=== PATIENT | female | born 1970 | race Caucasian/White ===

== ENCOUNTER 2019-08-03 12:02 | Observation (INO) ==
[2019-08-03] MEDS ORDERED: NITROGLYCERIN 2% OINTMENT 30GM TUBE EXT STA (12:48)
[2019-08-03] MEDS ORDERED: SODIUM CHLORIDE 0.9% 500 ML IV SCH (13:00)
--- NOTE | 2019-08-03 13:03 | Emergency Department Note ---
History of Present Illness General Chief complaint: Chest Pain Stated complaint: CHEST PAIN,DIZZINESS,PAIN IN SHOULDER BLADES,JAW Time Seen by Provider: 08/03/19 12:34 Source: patient History of Present Illness Provider complaint: Chest pain Onset (ago): week(s) Location: chest and left Radiation: back Pain Consistency: + intermittent Quality: + other (Pressure) Relieved By: + none Associated symptoms: + shortness of breath; no cough, no fever/chills and no nausea/vomiting This is a 49-year-old female who presents with chest pain. The pain started a week ago after eating dinner. She describes it as a pressure on the left side of her chest radiating straight to her back. No alleviating factors. It lasted about 10 minutes at the time and was associated with some shortness of breath. Since then she has been having persistent discomfort. She saw her doctor about a week ago who did an EKG and tested her for COVID. The COVID testing was negative. She does not know about the EKG. She is scheduled to have a stress test and further work-up tomorrow but became concerned and came to the emergency department for persistent symptoms. She stated that the chest pressure kept her up all night and she has not been able to sleep for the past 3 days. She has been sweating as well and short of breath. She denies any leg swelling or pain. She states that she has not been on control for a year. She does have a history of high cholesterol and a strong family history of cardiac disease. Her father had his first heart attack in his 40s. The patient does not smoke. She denies any cough, fever, abdominal pain, vomiting or diarrhea. She denies any known exposure to COVID-19. Home Medications Home Medications Medication Instructions Recorded Confirmed Type aspirin 81 mg PO PM 08/03/19 08/03/19 History calcium carbonate [Calcium 600] 0 mg PO PM 08/03/19 08/03/19 History cholecalciferol (vitamin D3) 125 mcg PO QAM 08/03/19 08/03/19 History [Vitamin D3] coenzyme Q10 [Co Q-10] 100 mg PO QAM 08/03/19 08/03/19 History ferrous sulfate [iron] 325 mg PO PM 08/03/19 08/03/19 History melatonin 3 mg PO HS PRN 08/03/19 08/03/19 History multivitamin 1 tab PO QAM 08/03/19 08/03/19 History omega 2-dfg-asc-fish oil [Fish Oil] 1 cap PO QAM 08/03/19 08/03/19 History Allergies Allergy/AdvReac Type Severity Reaction Status Date / Time No Known Allergies Allergy Unverified 08/03/19 12:51 Past Med/Surg History Medical History High cholesterol Family History Father Stroke Coronary heart disease Social History Feels Safe at Home: Yes Smoking Status: Never smoker Review of Systems See HPI for pertinent positives & negatives. and A total of 10 systems reviewed and were otherwise negative Physical Exam Vital Signs Vital Signs - 24 hr 08/03/19 12:07 08/03/19 12:20 08/03/19 12:29 Temperature 36.8 C Temperature Source Oral Pulse Rate 87 72 67 Pulse Rate from SpO2 Sensor 75 69 Respiratory Rate 20 15 20 Respiratory Effort / Characteristics Non-Labored Spontaneous Respiratory Depth Normal Respiratory Pattern Regular Blood Pressure 120/82 123/77 Blood Pressure Mean 94 83 Pulse Oximetry 99 99 100 Oxygen Delivery Method Room Air Sepsis Recent Fever Within 48 Hours No Sepsis Action Taken by Nursing No Action Required 08/03/19 12:30 08/03/19 13:00 08/03/19 13:10 Temperature Temperature Source Pulse Rate 74 67 71 Pulse Rate from SpO2 Sensor 75 70 72 Respiratory Rate 24 15 19 Respiratory Effort / Characteristics Respiratory Depth Respiratory Pattern Blood Pressure 115/79 129/89 Blood Pressure Mean 85 96 Pulse Oximetry 99 100 100 Oxygen Delivery Method Room Air Room Air Sepsis Recent Fever Within 48 Hours Sepsis Action Taken by Nursing 08/03/19 13:20 08/03/19 13:30 08/03/19 13:40 Temperature Temperature Source Pulse Rate 73 81 68 Pulse Rate from SpO2 Sensor 72 70 Respiratory Rate 16 18 15 Respiratory Effort / Characteristics Respiratory Depth Respiratory Pattern Blood Pressure 109/76 Blood Pressure Mean 86 Pulse Oximetry 100 100 99 Oxygen Delivery Method Room Air Other Sepsis Recent Fever Within 48 Hours Sepsis Action Taken by Nursing 08/03/19 13:50 08/03/19 14:00 08/03/19 14:10 Temperature Temperature Source Pulse Rate 77 85 71 Pulse Rate from SpO2 Sensor 75 84 75 Respiratory Rate 13 17 14 Respiratory Effort / Characteristics Respiratory Depth Respiratory Pattern Blood Pressure 108/79 Blood Pressure Mean 91 Pulse Oximetry 100 99 99 Oxygen Delivery Method Sepsis Recent Fever Within 48 Hours Sepsis Action Taken by Nursing 08/03/19 14:20 Temperature Temperature Source Pulse Rate 71 Pulse Rate from SpO2 Sensor 70 Respiratory Rate 16 Respiratory Effort / Characteristics Respiratory Depth Respiratory Pattern Blood Pressure Blood Pressure Mean Pulse Oximetry 100 Oxygen Delivery Method Sepsis Recent Fever Within 48 Hours Sepsis Action Taken by Nursing Constitutional: Vital signs reviewed. Eyes: Pupils are equal round reactive to light. Conjunctiva are noninjected. ENT: Pharynx is clear without erythema or exudate. Mucous membranes are moist. Neck supple without meningeal signs. Respiratory: Clear to auscultation bilaterally. Breath sounds are equal bilaterally. Cardiovascular: Regular rate and rhythm. No rubs or gallops. GI: Soft, nondistended and nontender. Bowel sounds are present. Musculoskeletal: No peripheral edema. No lower extremity tenderness. Integumentary: No cyanosis. or jaundice. Neurological: The patient is awake and alert. No focal deficits. Psychiatric: Slightly anxious appearing. Course Administered Medications Discontinued Medications Aspirin (Aspirin) 324 mg PO NOW STA Stop: 08/03/19 14:05 Last Admin: 08/03/19 14:14 Dose: 324 mg Documented by: [id number] Fentanyl Citrate (Fentanyl Citrate) 25 mcg IV NOW STA Stop: 08/03/19 13:53 Last Admin: 08/03/19 14:16 Dose: 25 mcg Documented by: [id number] Sodium Chloride (Nss) 500 mls @ 999 mls/hr IV .Q31M ANNIKA Stop: 08/03/19 13:30 Last Infusion: 08/03/19 13:35 Dose: 0 mls/hr Documented by: [id number] Admin: 08/03/19 12:58 Dose: 999 mls/hr Documented by: [id number] Nitroglycerin (Nitro-Bid 2%) 0.5 inch EXT NOW STA Stop: 08/03/19 12:49 Last Admin: 08/03/19 12:58 Dose: 0.5 inch Documented by: [id number] Ondansetron HCl (Zofran) 4 mg IV NOW STA Stop: 08/03/19 13:53 Last Admin: 08/03/19 14:14 Dose: 4 mg Documented by: [id number] Medical Decision Making Differential Diagnosis Unstable angina, OK, PE, pneumonia, GERD Medical Records Attestation: I reviewed the patient's medical records. I did perform a limited focused review of portions of the patient's old chart on the electronic medical record. The patient has had no recent pertinent visits to this hospital. Home Medications Current Medication List: was personally reviewed by me Laboratory Data Attestation: I reviewed the patient's lab results. Result diagrams: 08/03/19 12:28 08/03/19 12:28 Lab Results 08/03/19 08/03/19 08/03/19 Range/Units 12:28 12:28 12:28 WBC 8.70 (4.8-10.8) K/uL RBC 4.54 (4.2-5.4) M/uL Hgb 14.4 (12.0-16.0) g/dL Hct 42.7 (37-47) % MCV 94.1 (80-100) fL MCH 31.7 (25-34) pg MCHC 33.7 (32-36) g/dL RDW Std Deviation 41.9 (36.4-46.3) fL RDW Coeff of Samantha 12.3 (11.5-14.5) % Plt Count 226 (130-400) K/uL MPV 12.9 H (7.4-10.4) fL Immature Gran % (Auto) 0.1 % Neut % (Auto) 65.6 % Lymph % (Auto) 22.9 % [place] % (Auto) 10.3 % Eos % (Auto) 0.8 % Baso % (Auto) 0.3 % Immature Gran # (Auto) 0.01 (0.00-0.02) K/uL Neut # (Auto) 5.70 (1.4-6.5) K/uL Lymph # (Auto) 1.99 (1.2-3.4) K/uL [place] # (Auto) 0.90 H (0.11-0.59) K/uL Eos # (Auto) 0.07 (0-0.5) K/uL Baso # (Auto) 0.03 (0-0.2) K/uL PT 10.9 (9.0-12.0) Seconds INR 1.0 (0.9-1.1) APTT 30.2 (21.0-31.0) Seconds PTT Ratio 1.1 D-Dimer < 190 (0-500) ug/L FEU Sodium 138 (136-145) mmol/L Potassium 4.0 (3.5-5.1) mmol/L Chloride 107 (98-107) mmol/L Carbon Dioxide 22 (21-32) mmol/L Anion Gap 8.0 (3-11) BUN 19 H (7-18) mg/dl Creatinine 0.90 (0.6-1.2) mg/dl Est Cr Clr Drug Dosing 69.0 ml/min Est GFR ( Amer) 88.3 Est GFR (Non-Af Amer) 76.1 BUN/Creatinine Ratio 21.0 H (10-20) Glucose 87 (70-99) mg/dl Calcium 9.5 (8.5-10.1) mg/dl Total Bilirubin 0.7 (0.2-1) mg/dl AST 17 (15-37) U/L ALT 20 (12-78) U/L Alkaline Phosphatase 75 (45-117) U/L Troponin I < 0.015 (0-0.045) ng/ml Total Protein 8.1 (6.4-8.2) gm/dl Albumin 4.0 (3.4-5.0) gm/dl Globulin 4.1 H (2.5-4.0) gm/dl Albumin/Globulin Ratio 1.0 (0.9-2) Imaging Data Radiologist's Impression: XR chest 1V portable HISTORY: 49 years-old Female Chest Pain acute atypical chest pain COMPARISON: None TECHNIQUE: Portable AP view of the chest FINDINGS: Cardiac mediastinal and hilar silhouettes are within normal limits. No pneumothorax, pleural effusion, focal airspace consolidation or overt pulmonary edema. Bones of the chest appear normal. IMPRESSION: No acute process. ACT 112: Negative or not required by law. The above report was generated using voice recognition software. It may contain grammatical, syntax or spelling errors. Electronically signed by: Luigi Lieberman M.D. 08/03/2019 1:09 PM ECG Data Attestation: I personally reviewed and interpreted this ECG as follows: Indication: + chest pain Rate (beats per minute): 78 Rhythm: + normal sinus ECG Intervals/blocks: no Left bundle branch block ECG ST segments: + ST depression (Anterior and inferiorly) and + T-wave inversions (Anteriorly and inferiorly) ECG Findings: no PVCs Comparison ECG Date: no prior available Additional Comments: Repeat twelve-lead EKG per my interpretation demonstrates normal sinus rhythm with a rate of 69 bpm. There are persistent ST depressions and T wave inversions in the inferior and anterior leads. No ST elevations no PVCs. No significant change from EKG done earlier today. Blood Pressure Blood Pressure Findings: Normal blood pressure MDM Narrative I did evaluate the patient as noted above. The patient is presenting with chest heaviness and pressure on the left side of her chest with shortness of breath and intermittent sweating. She does have a number of cardiac risk factors including family history and high cholesterol. IV access was established. I did place an order for continuous cardiac monitoring. The monitor showed normal sinus rhythm rate of 75. I did order and personally review the patient's 12- lead EKG as described above. Her twelve-lead EKG is abnormal and shows ST depressions and T wave inversions as described above. I did obtain a twelve- lead EKG from the [employer] system performed last week which did not show these changes. I did order and personally reviewed the images of the patient's chest x-ray as described above. There is no evidence of infiltrate or pneumothorax. I did order and review the patient's blood work as noted in the electronic medical record. CBC is unremarkable without leukocytosis or anemia. Electrolytes are unremarkable. D-dimer and troponin are negative. I did treat the patient with nitroglycerin paste 0.5 inches to the chest wall. I did reassess the patient after her testing came back. She stated that the pressure and heaviness has gone away but she has some burning on the left side of her chest. She is no longer short of breath. Given her EKG findings and clinical history as well as risk factors I did feel it was prudent to have her hospitalized for further testing and evaluation. I did repeat another twelve- lead EKG which showed similar findings as described above per my interpretation. I did treat her with fentanyl 25 mcg IV and Zofran 4 mg IV after which her chest pain resolved. She was also given aspirin p.o. I did discuss the case with the hospitalist and case therapist. Impression & Plan Chest pain, Abnormal ECG Discharge Plan Visit Data Chief Complaint: Chest Pain Stated Complaint: CHEST PAIN,DIZZINESS,PAIN IN SHOULDER BLADES,JAW ED Provider: Karel Montgomery Discharge Problem: Chest pain, Abnormal ECG Patient Disposition: Being Evaluated by Hospitalist Forms Stand Alone Forms: [facility] Prescriptions Prescriptions: No Action multivitamin Tablet 1 tab PO QAM RF: 0 melatonin 3 mg Tablet 3 mg PO HS PRN (Reason: Sleep) RF: 0 calcium carbonate [Calcium 600] 600 mg calcium (1,500 mg) Tablet 0 mg PO PM RF: 0 ferrous sulfate [iron] 325 mg (65 mg iron) Tablet 325 mg PO PM RF: 0 cholecalciferol (vitamin D3) [Vitamin D3] 125 mcg (5,000 unit) Tablet 125 mcg PO QAM RF: 0 omega 0-ggu-hxq-fish oil [Fish Oil] 1,000 mg (120 mg-180 mg) Capsule 1 cap PO QAM RF: 0 aspirin 81 mg Tablet,Delayed Release (Dr/Ec) 81 mg PO PM RF: 0 coenzyme Q10 [Co Q-10] 100 mg Capsule 100 mg PO QAM RF: 0 Referrals Referrals: Elvia Lee MD [Primary Care Provider] - Discharge Problem: Chest pain Qualifiers: Chest pain type: unspecified Qualified Code(s): R07.9 - Chest pain, unspecified
--- NOTE | 2019-08-03 13:10 | XRay Report ---
XR chest 1V portable HISTORY: 49 years-old Female Chest Pain acute atypical chest pain COMPARISON: None TECHNIQUE: Portable AP view of the chest FINDINGS: Cardiac mediastinal and hilar silhouettes are within normal limits. No pneumothorax, pleural effusion , focal airspace consolidation or overt pulmonary edema. Bones of the chest appear normal. IMPRESSION: No acute process. ACT 112: Negative or not required by law. The above report was generated using voice recognition software. It may contain grammatical, syntax o r spelling errors. Electronically signed by: Liugi Lieberman M.D. 08/03/2019 1:09 PM
[2019-08-03 13:23] LABS: Basophils # (auto) 0.03 K/uL (0-0.2); Basophils % (auto) 0.3 %; Eosinophils # (auto) 0.07 K/uL (0-0.5); Eosinophils % (auto) 0.8 %; Hematocrit (blood only) 42.7 % (37-47); Hemoglobin 14.4 g/dL (12.0-16.0); Immature Granulocytes # (auto) 0.01 K/uL (0.00-0.02); Immature Granulocytes % (auto) 0.1 %; Lymphocytes # (auto) 1.99 K/uL (1.2-3.4); Lymphocytes % (auto) 22.9 %; Mean Corpuscular Hemoglobin 31.7 pg (25-34); Mean Corpuscular Hgb Conc 33.7 g/dL (32-36); Mean Corpuscular Volume 94.1 fL (80-100); Mean Platelet Volume 12.9 fL (7.4-10.4); Monocytes % (auto) 10.3 %; Neutrophils % (auto) 65.6 %; Platelet Count 226 K/uL (130-400); RDW Coefficient of Variation 12.3 % (11.5-14.5); RDW Standard Deviation 41.9 fL (36.4-46.3); Red Blood Count 4.54 M/uL (4.2-5.4)
[2019-08-03 13:29] LABS: D Dimer < 190 ug/L FEU (0-500); Partial Thromboplastin Ratio 1.1; Partial Thromboplastin Time 30.2 Seconds (21.0-31.0); Prothrombin Time 10.9 Seconds (9.0-12.0)
[2019-08-03 13:30] LABS: Alanine Aminotransferase 20 U/L (12-78); Aspartate Aminotransferase 17 U/L (15-37); Blood Urea Nitrogen 19 mg/dl (7-18); Calcium 9.5 mg/dl (8.5-10.1); Carbon Dioxide 22 mmol/L (21-32); Chloride 107 mmol/L (98-107); Est GFR (African American) 88.3; Est GFR (Non-African American) 76.1; Glucose 87 mg/dl (70-99); Sodium 138 mmol/L (136-145)
[2019-08-03 13:35] LABS: Alkaline Phosphatase 75 U/L (45-117); Bilirubin,Total 0.7 mg/dl (0.2-1); Globulin 4.1 gm/dl (2.5-4.0); Total Protein 8.1 gm/dl (6.4-8.2); Troponin I < 0.015 ng/ml (0-0.045)
[2019-08-03] MEDS ORDERED: ONDANSETRON INJ 2 MG/ML 2 ML VIAL IV STA (13:52)
[2019-08-03] MEDS ORDERED: fentaNYL citrate 100 MCG/2 ML VIAL IV STA (13:52)
[2019-08-03] MEDS ORDERED: ASPIRIN CHEW 324 MG PO STA (14:04)
[2019-08-03] MEDS ORDERED: Heparin IV Low Dose WITH Bolus IV STA (15:11)
[2019-08-03] MEDS ORDERED: HEPARIN SODIUM/DEXTROSE 25,000 UNITS/500 ML BAG IV SCH (15:15)
--- NOTE | 2019-08-03 15:19 | History & Physical Report ---
Date of Service August 03, 2019 Assessment & Plan (1) Chest pain: (2) Abnormal ECG: (3) Family history of early CAD: Patient with chest pain with radiation into the back & jaw and strong family history of premature CAD. Symptoms are intermittent despite exertion or rest. Improved with nitro and Fentanyl. Possible NSTEMI with unstable angina. Repeat EKG showed continued T wave inversions. Trend troponin. Cardiology consulted. Discussed patient with Dr. Andrade who agreed to see the patient in the ED. --> Plan for Echo and probable coronary angiography in the AM. Starting low dose beta mingo. NPO after midnight. Heparin drip started. Admit to PCU. EKG PRN chest pain. Nitro PRN. ASA given in the ED. Continue 81 mg ASA daily. (4) High cholesterol: Atorvastatin started today. Continue daily. Repeat Lipids in AM. (5) DVT prophylaxis: Heparin as above History of Present Illness Chief Complaint: Chest pain Primary Care Provider: Elvia Lee MD Patient is a 49 yo female with history of iron deficiency anemia and dyslipidemia with a strong family history of premature CAD who presented to the ED today with chest pain. She started to have chest pain last week following dinner and a glass of wine. At that time, the pain was a "crushing" pain/sensation in her chest and radiating into her back. She also noted some SOB at that time. She was seen at her PCP's office and had an EKG which showed no acute changes at that time. Her symptoms were on and off and not associated with exertion/exercise. She was tested for COVID which was negative. She was ultimately scheduled for labs and cardiac evaluation, but she has not had that yet. She started to have episodic pain over the past couple of days, and last night, her pain became persistent to the point that she didn't sleep well. She describes a pressure/burning pain over the left/sternal area that radiates into the back. She did have some radiation into her left jaw and neck overnight as well. The pain is on and off whether she is active or at rest. She does have associated SOB and mild pain with deep breath. She also has been feeling "jittery" for the past 12 hours or so. She started daily ASA 81 mg over the past couple days because of concerns over symptoms. She otherwise denies dysphagia, GERD symptoms, anxiety, N/V/D/C, abdominal pain, or peripheral edema. She has a strong family history of CAD. Her mother and father both have CAD. Her father had an TX at 42 & a stroke at 60 yo. Her paternal grandfather also had TX x 3 (youngest in his 40s). The patient's last LDL as an outpatient was 169 on 08/22/18. She does also have history of iron deficiency anemia that has been well controlled with iron supplementation. Since presentation: First troponin negative. DDimer negative. Initial EKG in the ED showed T wave inversions in the anterior & inferior leads. She was given Nitro Paste and Fentanyl which improved her pain. She is currently resting comfortably in the ED. She does describe some "jittery" feeling that has continued with these medications. Vitals stable. CXR showed no acute process. Allergies Allergy/AdvReac Type Severity Reaction Status Date / Time No Known Allergies Allergy Unverified 08/03/19 12:51 Home Medications Home Medications Medication Instructions Recorded Confirmed Type aspirin 81 mg PO PM 08/03/19 08/03/19 History calcium carbonate [Calcium 600] 0 mg PO PM 08/03/19 08/03/19 History cholecalciferol (vitamin D3) 125 mcg PO QAM 08/03/19 08/03/19 History [Vitamin D3] coenzyme Q10 [Co Q-10] 100 mg PO QAM 08/03/19 08/03/19 History ferrous sulfate [iron] 325 mg PO PM 08/03/19 08/03/19 History melatonin 3 mg PO HS PRN 08/03/19 08/03/19 History multivitamin 1 tab PO QAM 08/03/19 08/03/19 History omega 9-rnk-rrn-fish oil [Fish Oil] 1 cap PO QAM 08/03/19 08/03/19 History Past Med/Surg History Medical History (Updated 08/03/19 @ 17:06 by Shi Johnson PA-C) Family history of early CAD High cholesterol History of iron deficiency anemia Surgical History (Updated 08/03/19 @ 16:47 by Shi Johnson PA-C) H/O dilation and curettage Family History (Updated 08/03/19 @ 16:48 by Shi Johnson PA-C) Father Stroke Coronary heart disease TX @ 42 yo Diabetes Hypertension Mother Coronary heart disease Hypertension Grandfather (Paternal) Coronary heart disease [place] x 3 (40 yo earliest) Social History Preferred Language: [place] Communication Ability: Effective Extrusion Die Template Maker Required: No Beliefs That Will Affect Care: None Current Living Situation: Family Other Information That Helps Us Care for You: No Feels Safe at Home: Yes Safety Concerns: Feels Safe At This Time Smoking Status: Never smoker Hx Alcohol Use: Yes Alcohol type: wine Hx Substance Use: No Review of Systems Review of Systems: All systems reviewed & are unremarkable except as noted in HPI & below Physical Exam Physical Exam: See Dr. Guzman's addendum for physical exam. Results & Data Results & Data ([facility]) Vital Signs (Past 12 Hours) Vital Signs Temp Pulse Resp BP Pulse Ox 08/03/19 14:20 71 16 100 08/03/19 14:10 71 14 99 08/03/19 14:00 85 17 108/79 99 08/03/19 13:50 77 13 100 08/03/19 13:40 68 15 99 08/03/19 13:30 81 18 109/76 100 08/03/19 13:20 73 16 100 08/03/19 13:10 71 19 100 08/03/19 13:00 67 15 129/89 100 08/03/19 12:30 74 24 115/79 99 08/03/19 12:29 67 20 100 08/03/19 12:20 72 15 123/77 99 08/03/19 12:07 36.8 C 87 20 120/82 99 Laboratory Results Laboratory Results - last 24 hr 08/03/19 08/03/19 08/03/19 12:28 12:28 12:28 WBC 8.70 RBC 4.54 Hgb 14.4 Hct 42.7 MCV 94.1 MCH 31.7 MCHC 33.7 RDW Std Deviation 41.9 RDW Coeff of Samantha 12.3 Plt Count 226 MPV 12.9 H Immature Gran % (Auto) 0.1 Neut % (Auto) 65.6 Lymph % (Auto) 22.9 [place] % (Auto) 10.3 Eos % (Auto) 0.8 Baso % (Auto) 0.3 Immature Gran # (Auto) 0.01 Neut # (Auto) 5.70 Lymph # (Auto) 1.99 [place] # (Auto) 0.90 H Eos # (Auto) 0.07 Baso # (Auto) 0.03 ESR PT 10.9 INR 1.0 APTT 30.2 PTT Ratio 1.1 D-Dimer < 190 Sodium 138 Potassium 4.0 Chloride 107 Carbon Dioxide 22 Anion Gap 8.0 BUN 19 H Creatinine 0.90 Est Cr Clr Drug Dosing 69.0 Est GFR ( Amer) 88.3 Est GFR (Non-Af Amer) 76.1 BUN/Creatinine Ratio 21.0 H Glucose 87 Calcium 9.5 Total Bilirubin 0.7 AST 17 ALT 20 Alkaline Phosphatase 75 Troponin I < 0.015 Total Protein 8.1 Albumin 4.0 Globulin 4.1 H Albumin/Globulin Ratio 1.0 08/03/19 12:28 WBC RBC Hgb Hct MCV MCH MCHC RDW Std Deviation RDW Coeff of Samantha Plt Count MPV Immature Gran % (Auto) Neut % (Auto) Lymph % (Auto) [place] % (Auto) Eos % (Auto) Baso % (Auto) Immature Gran # (Auto) Neut # (Auto) Lymph # (Auto) [place] # (Auto) Eos # (Auto) Baso # (Auto) ESR Pending PT INR APTT PTT Ratio D-Dimer Sodium Potassium Chloride Carbon Dioxide Anion Gap BUN Creatinine Est Cr Clr Drug Dosing Est GFR ( Amer) Est GFR (Non-Af Amer) BUN/Creatinine Ratio Glucose Calcium Total Bilirubin AST ALT Alkaline Phosphatase Troponin I Total Protein Albumin Globulin Albumin/Globulin Ratio Diagnostic Findings CXR: IMPRESSION: No acute process. Code Status & VTE Plan VTE Prophylaxis Plan VTE Prophylaxis will be ordered: Yes Supervising Physician Co-Signing Physician Notes History and physical exam obtained by me. History significant for 49-year-old woman with history of chest pain over the past week that worsened over the past few days. Chest pain described as burning with pressure, referred to the back of the neck and shoulder region, associated with some shortness of breath, occurs both at rest and with exertion. Significant family history of premature CAD in father and grandfather. Chest pain improved with nitro No smoking, illicit drug use Physical exam General: Well nourished, well hydrated, average body habitus, no acute distress and not ill appearing Eyes: PERRL, conjunctivae normal, not pale, anicteric sclerae, EOM intact bilaterally ENMT: External ear and nose normal, oropharynx normal Neck: Normal visual inspection, no tracheal deviation, no swelling noted Respiratory: Normal respiratory effort, no respiratory distress, lungs clear to auscultation, no crackles and no wheezes Cardiovascular: Pulse is RRR. S1-2, no murmurs, normal peripheral pulses, no pedal edema Chest (Breasts): Chest: normal inspection of chest, no tenderness to palpation Gastrointestinal (Abdomen): Abdomen is not distended, soft, non-tender to palpation, no guarding, no palpable hepatosplenomegaly, normal bowel sounds Musculoskeletal: No cyanosis or clubbing, all extremities motor strength 5/5 Neurologic: Alert and oriented x 3, No focal weakness, sensation grossly intact Psychiatric: Euthymic affect, no depressed affect EKG showed TWI in III, avF, V1-4 Initial trop in negative. Other labs and chest xray are unremarkable -Chest pain Non ST elevation Acute coronary syndrome Load aspirin Start heparin drip Start statin Continue nitro prn. Currently chest pain free during exam. Spoke with Candy Dipper [employer]. Patient may benefit from cardiac catheterization Will follow cardiology recommendations (1) Chest pain Chest pain type: unspecified Qualified Code(s): R07.9 - Chest pain, unspecified
[2019-08-03] MEDS ORDERED: HEPARIN SOD (PORCINE) 1000 UNIT/ML 10 ML VIAL ONE (15:29)
--- NOTE | 2019-08-03 15:57 | Cardiology Consultation ---
Date of Consultation August 03, 2019 Assessment & Plan (1) Chest pain: Patient is a relatively young 49-year-old female with recent onset of heavy severe chest pressure pain concerning for angina in a patient with cardiac risk factors of hyperlipidemia and family history. EKG today does demonstrate new ST segment abnormalities with initial negative troponin, d-dimer Chest x-ray normal Plan: Discussed above findings in detail with the patient echocardiogram will be performed and patient be treated with appropriate therapies for possible crescendo angina including IV heparin after echocardiogram. Extensive evaluation also discussed given rest symptoms, dynamic EKG changes will likely warrant diagnostic coronary angiography and patient is tentatively scheduled for procedure in a.m. Low-dose beta-mingo to begin this evening Addendum: Preliminary echo demonstrates normal LV systolic function without wall motion abnormality, no pericardial effusion and normal aortic root and valvular stone (2) Abnormal ECG: (3) Family history of early CAD: (4) High cholesterol: History of Present Illness Reason for Consultation: Chest pain, EKG changes Requesting Physician: Dr. Tomas History of Present Illness Patient is a 49-year-old female without prior history of cardiac disease but underlying cardiac risk factors of hyperlipidemia borderline hyperglycemia and strong familial history of premature coronary disease. Patient presents now noting approximately 2 weeks ago having developed an epis ode after a meal a glass of wine of severe substernal pressing chest pain radiating throughout her chest and into her back. Symptoms lasted approximately 10 minutes before resolving. Since that event patient's had intermittent episodes of chest pressure burning as well as sharp pleuritic pain on inspiration. Symptoms are described as pressure pain and radiate to the jaw neck and arm at times. Symptoms were not specifically exertionally related though she is felt a decline in overall exercise capacity has been concerned enough to limit sleep for the last 3 days. She denies fevers chills cough notes no melena medication dysuria hematuria notes no history rheumatic fever scarlet fever heart murmur. Appetite and weight have been generally stable. She is been noted to have an iron deficiency anemia which responded to iron supplements diagnosed August 2018. Patient presented today due to worsening symptoms or complaints. EKGs performed in comparison to prior study of 07/28/2019 demonstrated new T wave inversion in inferior and anterior leads with incomplete right bundle branch block. Patient is currently comfortable after fentanyl and nitroglycerin Patient has been taking aspirin daily for 3 days due to concerns over symptoms Allergies Allergy/AdvReac Type Severity Reaction Status Date / Time No Known Allergies Allergy Unverified 08/03/19 12:51 Home Medications Home Medications Medication Instructions Recorded Confirmed Type aspirin 81 mg PO PM 08/03/19 08/03/19 History calcium carbonate [Calcium 600] 0 mg PO PM 08/03/19 08/03/19 History cholecalciferol (vitamin D3) 125 mcg PO QAM 08/03/19 08/03/19 History [Vitamin D3] coenzyme Q10 [Co Q-10] 100 mg PO QAM 08/03/19 08/03/19 History ferrous sulfate [iron] 325 mg PO PM 08/03/19 08/03/19 History melatonin 3 mg PO HS PRN 08/03/19 08/03/19 History multivitamin 1 tab PO QAM 08/03/19 08/03/19 History omega 5-cpf-yng-fish oil [Fish Oil] 1 cap PO QAM 08/03/19 08/03/19 History Patient History Medical History Family history of early CAD High cholesterol History of iron deficiency anemia Family History Father Stroke Coronary heart disease Social History Preferred Language: Lithuanian Communication Ability: Effective 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 Beliefs That Will Affect Care: None Current Living Situation: Family Other Information That Helps Us Care for You: No Feels Safe at Home: Yes Safety Concerns: Feels Safe At This Time Smoking Status: Never smoker Hx Alcohol Use: Yes Alcohol type: wine Hx Substance Use: No Review of Systems Review of Systems: All systems reviewed & are unremarkable except as noted in HPI & below Physical Exam Constitutional: WD/WN, vitals as above Eyes: PERRL, conjunctivae normal, anicteric sclerae ENMT: external ear and nose normal, oropharynx normal Neck: trachea midline, no thyromegaly Respiratory: normal respiratory effort, lungs clear to auscultation Cardiovascular: Rate/Rhythm: regular rate and regular rhythm Heart Sounds: normal S1, normal S2 and + murmur (Less than grade 1/6 systolic murmur at right upper sternal border); no gallop and no cardiac rub Palpation: normal PMI Vessels: normal peripheral pulses, normal carotid upstroke and radial pulses present; no JVD, no carotid bruit and no femoral bruit Extremities: no edema Gastrointestinal (Abdomen): normal bowel sounds, soft, nontender, no hepatosplenomegaly Musculoskeletal: no cyanosis or clubbing, extremities motor strength 5/5 Skin: no rashes, warm and dry Neurologic: PERRL, EOMI, accommodation nl, no face palsy, no dysarthria Psychiatric: A+Ox3, euthymic affect Results & Data ([facility]) Vital Signs (Past 12 Hours) Vital Signs Temp Pulse Resp BP Pulse Ox 08/03/19 15:00 75 13 124/81 98 08/03/19 14:50 73 12 98 08/03/19 14:40 72 17 99 08/03/19 14:31 84 17 136/92 100 08/03/19 14:30 91 H 15 99 08/03/19 14:20 71 16 100 08/03/19 14:10 71 14 99 08/03/19 14:00 85 17 108/79 99 08/03/19 13:50 77 13 100 08/03/19 13:40 68 15 99 08/03/19 13:30 81 18 109/76 100 08/03/19 13:20 73 16 100 08/03/19 13:10 71 19 100 08/03/19 13:00 67 15 129/89 100 08/03/19 12:30 74 24 115/79 99 08/03/19 12:29 67 20 100 08/03/19 12:20 72 15 123/77 99 08/03/19 12:07 36.8 C 87 20 120/82 99 Laboratory Results Laboratory Results - last 24 hr 08/03/19 08/03/19 08/03/19 12:28 12:28 12:28 WBC 8.70 RBC 4.54 Hgb 14.4 Hct 42.7 MCV 94.1 MCH 31.7 MCHC 33.7 RDW Std Deviation 41.9 RDW Coeff of Samantha 12.3 Plt Count 226 MPV 12.9 H Immature Gran % (Auto) 0.1 Neut % (Auto) 65.6 Lymph % (Auto) 22.9 [place] % (Auto) 10.3 Eos % (Auto) 0.8 Baso % (Auto) 0.3 Immature Gran # (Auto) 0.01 Neut # (Auto) 5.70 Lymph # (Auto) 1.99 [place] # (Auto) 0.90 H Eos # (Auto) 0.07 Baso # (Auto) 0.03 PT 10.9 INR 1.0 APTT 30.2 PTT Ratio 1.1 D-Dimer < 190 Sodium 138 Potassium 4.0 Chloride 107 Carbon Dioxide 22 Anion Gap 8.0 BUN 19 H Creatinine 0.90 Est Cr Clr Drug Dosing 69.0 Est GFR ( Amer) 88.3 Est GFR (Non-Af Amer) 76.1 BUN/Creatinine Ratio 21.0 H Glucose 87 Calcium 9.5 Total Bilirubin 0.7 AST 17 ALT 20 Alkaline Phosphatase 75 Troponin I < 0.015 Total Protein 8.1 Albumin 4.0 Globulin 4.1 H Albumin/Globulin Ratio 1.0 Diagnostic Findings EKG: Normal sinus rhythm with incomplete right bundle branch block new T wave inversion inferior and anterior leads (1) Chest pain Chest pain type: unspecified Qualified Code(s): R07.9 - Chest pain, unspecified
--- NOTE | 2019-08-03 16:04 | Communication Note ---
Date of Service: August 03, 2019 History and physical exam obtained by me. History significant for 49-year-old woman with history of chest pain over the past week that worsened over the past few days. Chest pain described as burning with pressure, referred to the back of the neck and shoulder region, associated with some shortness of breath, occurs both at rest and with exertion. Significant family history of premature CAD in father and grandfather. Chest pain improved with nitro No smoking, illicit drug use Physical exam General: Well nourished, well hydrated, average body habitus, no acute distress and not ill appearing Eyes: PERRL, conjunctivae normal, not pale, anicteric sclerae, EOM intact bilaterally ENMT: External ear and nose normal, oropharynx normal Neck: Normal visual inspection, no tracheal deviation, no swelling noted Respiratory: Normal respiratory effort, no respiratory distress, lungs clear to auscultation, no crackles and no wheezes Cardiovascular: Pulse is RRR. S1-2, no murmurs, normal peripheral pulses, no pedal edema Chest (Breasts): Chest: normal inspection of chest, no tenderness to palpation Gastrointestinal (Abdomen): Abdomen is not distended, soft, non-tender to palpation, no guarding, no palpable hepatosplenomegaly, normal bowel sounds Musculoskeletal: No cyanosis or clubbing, all extremities motor strength 5/5 Neurologic: Alert and oriented x 3, No focal weakness, sensation grossly intact Psychiatric: Euthymic affect, no depressed affect EKG showed TWI in III, avF, V1-4 Initial trop in negative. Other labs and chest xray are unremarkable -Chest pain Non ST elevation Acute coronary syndrome Load aspirin Start heparin drip Start statin Continue nitro prn. Currently chest pain free during exam. Spoke with Maternity Floor Supervisor. Patient may benefit from cardiac catheterization Will follow cardiology recommendations
[2019-08-03] MEDS: ATORVASTATIN 40 MG TAB PO SCH (16:45)
[2019-08-03] MEDS ORDERED: NITROGLYCERIN SL 0.4 MG/TAB TAB SL PRN (18:22)
[2019-08-03] MEDS ORDERED: ONDANSETRON INJ 2 MG/ML 2 ML VIAL IV PRN (18:22)
[2019-08-03] MEDS ORDERED: MELATONIN 3 MG TAB PO PRN (18:22)
[2019-08-03] MEDS: METOPROLOL TARTRATE 25 MG TAB PO SCH (18:25)
[2019-08-03] MEDS ORDERED: ASPIRIN 81 MG ECTAB PO SCH (21:00)
[2019-08-03] MEDS ORDERED: FERROUS SULFATE 325 MG TAB PO SCH (21:00)
[2019-08-03] MEDS: ACETAMINOPHEN 325 MG TAB PO PRN (22:36)
--- NOTE | 2019-08-03 23:27 | Electrocardiogram Report ---
Test Reason : Blood Pressure : / mmHG Vent. Rate : 078 BPM Atrial Rate : 078 BPM P-R Int : 116 ms QRS Dur : 094 ms QT Int : 372 ms P-R-T Axes : 083 050 -27 degrees QTc Int : 424 ms Normal sinus rhythm with sinus arrhythmia Incomplete right bundle branch block Abnormal ECG No previous ECGs available Confirmed by Elias Otero ([id number]) on 08/03/2019 11:27:19 PM Referred By: REFERRED SELF Confirmed By:Elias Otero
--- NOTE | 2019-08-03 23:38 | Electrocardiogram Report ---
Test Reason : Blood Pressure : / mmHG Vent. Rate : 069 BPM Atrial Rate : 069 BPM P-R Int : 122 ms QRS Dur : 090 ms QT Int : 422 ms P-R-T Axes : 061 028 000 degrees QTc Int : 452 ms Normal sinus rhythm with sinus arrhythmia T wave abnormality, consider anterior ischemia T wave abnormality, consider inferior ischemia Abnormal ECG When compared with ECG of 03-AUG-2019 12:18, No significant change was found Confirmed by Elias Otero ([id number]) on 08/03/2019 11:38:39 PM Referred By: REFERRED SELF Confirmed By:Elias Otero
[2019-08-04 01:03] LABS: Partial Thromboplastin Ratio 1.8
[2019-08-04 01:04] LABS: Partial Thromboplastin Time 50.9 Seconds (21.0-31.0)
[2019-08-04 04:41] LABS: Hematocrit (blood only) 38.7 % (37-47); Mean Corpuscular Hemoglobin 31.6 pg (25-34); Mean Corpuscular Hgb Conc 33.6 g/dL (32-36); Mean Corpuscular Volume 94.2 fL (80-100); Mean Platelet Volume 12.5 fL (7.4-10.4); Platelet Count 172 K/uL (130-400); RDW Coefficient of Variation 12.3 % (11.5-14.5); RDW Standard Deviation 41.9 fL (36.4-46.3); Red Blood Count 4.11 M/uL (4.2-5.4)
[2019-08-04 05:00] LABS: Albumin Level 3.3 gm/dl (3.4-5.0); BUN Creatinine Ratio 20.7 (10-20); Calcium 8.2 mg/dl (8.5-10.1); Creatinine Clr Calc Pharmacy 63.4 ml/min; Est GFR (African American) 79.6; Est GFR (Non-African American) 68.7; Potassium 3.9 mmol/L (3.5-5.1)
[2019-08-04 05:02] LABS: Albumin Globulin Ratio 0.9 (0.9-2); Bilirubin,Total 0.4 mg/dl (0.2-1); Globulin 3.6 gm/dl (2.5-4.0); Total Protein 6.9 gm/dl (6.4-8.2)
[2019-08-04 05:06] LABS: Partial Thromboplastin Ratio 1.8
[2019-08-04 07:35] LABS: Estimated Average Glucose 91 mg/dl; Hemoglobin A1C 4.8 % (4.5-5.6)
[2019-08-04] MEDS ORDERED: ASPIRIN 81 MG CHEW ONE (09:29)
[2019-08-04] MEDS ORDERED: NiCARDipine HCL INJ 2.5 MG/ML 10 ML AMP ONE (09:32)
[2019-08-04] MEDS ORDERED: fentaNYL citrate 100 MCG/2 ML VIAL ONE (09:32)
[2019-08-04] MEDS ORDERED: MIDAZOLAM HCL 1 MG/ML 2ML VIAL ONE (09:32)
[2019-08-04] MEDS ORDERED: NITROGLYCERIN/D5W 100MCG/ML 20ML SYR ONE (09:32)
[2019-08-04] MEDS ORDERED: HEPARIN (PORCINE) 1000 UNIT/ML 10 ML (CATH LAB USE ONLY) ONE (09:32)
--- NOTE | 2019-08-04 09:32 | Pre Anesthesia Assessment ---
Date of Service August 04, 2019 Pre Sedation Assessment Vital Signs Temp Pulse Pulse Resp BP BP BP 08/04/19 08:30 63 29 H 08/04/19 08:00 62 12 08/04/19 07:30 36.8 C 66 19 08/04/19 07:18 70 18 91/69 L 08/04/19 07:00 71 20 08/04/19 04:00 36.8 C 66 12 98/45 L 08/04/19 00:00 36.8 C 61 15 108/68 08/03/19 20:00 37.1 C 74 20 94/63 L 08/03/19 18:22 36.8 C 16 102/68 08/03/19 17:40 68 16 08/03/19 17:30 68 13 104/68 08/03/19 17:20 75 13 08/03/19 17:10 75 12 08/03/19 17:01 78 13 127/62 08/03/19 17:00 83 12 08/03/19 16:50 77 17 08/03/19 16:40 73 12 08/03/19 16:30 72 12 121/73 08/03/19 16:20 70 16 08/03/19 16:10 76 20 08/03/19 16:00 70 13 112/67 08/03/19 15:50 69 17 08/03/19 15:40 82 16 08/03/19 15:34 95 H 17 08/03/19 15:00 75 13 124/81 08/03/19 14:50 73 12 08/03/19 14:40 72 17 08/03/19 14:31 84 17 136/92 08/03/19 14:30 91 H 15 08/03/19 14:20 71 16 08/03/19 14:10 71 14 08/03/19 14:00 85 17 108/79 08/03/19 13:50 77 13 08/03/19 13:40 68 15 08/03/19 13:30 81 18 109/76 08/03/19 13:20 73 16 08/03/19 13:10 71 19 08/03/19 13:00 67 15 129/89 08/03/19 12:30 74 24 115/79 08/03/19 12:29 67 20 08/03/19 12:20 72 15 123/77 08/03/19 12:07 36.8 C 87 20 120/82 Pulse Ox 08/04/19 08:30 08/04/19 08:00 08/04/19 07:30 100 08/04/19 07:18 08/04/19 07:00 08/04/19 04:00 100 08/04/19 00:00 99 08/03/19 20:00 99 08/03/19 18:22 98 08/03/19 17:40 08/03/19 17:30 100 08/03/19 17:20 08/03/19 17:10 08/03/19 17:01 100 08/03/19 17:00 08/03/19 16:50 08/03/19 16:40 08/03/19 16:30 08/03/19 16:20 100 08/03/19 16:10 98 08/03/19 16:00 100 08/03/19 15:50 100 08/03/19 15:40 08/03/19 15:34 08/03/19 15:00 98 08/03/19 14:50 98 08/03/19 14:40 99 08/03/19 14:31 100 08/03/19 14:30 99 08/03/19 14:20 100 08/03/19 14:10 99 08/03/19 14:00 99 08/03/19 13:50 100 08/03/19 13:40 99 08/03/19 13:30 100 08/03/19 13:20 100 08/03/19 13:10 100 08/03/19 13:00 100 08/03/19 12:30 99 08/03/19 12:29 100 08/03/19 12:20 99 08/03/19 12:07 99 Cardiovascular RRR, no murmur, no edema Respiratory normal respiratory effort, lungs clear to auscultation Pre-Sedation Airway Assessment Smoking Status: Never smoker Procedure Planning Contraindications for Sedation: none Current Medications Reviewed: Yes Notes The planned sedation has been discussed with the patient. Informed Consent was obtained. I have identified the patient, determined the appropriateness of sedation and have assessed the patient immediately prior to the procedure. All medicine(s) and interventions are by my order.
[2019-08-04] MEDS ORDERED: ACETAMINOPHEN 325 MG TAB PO PRN (10:34)
--- NOTE | 2019-08-04 10:36 | Post Anesthesia Assessment ---
Date of Service August 04, 2019 Post Sedation Assessment Vital Signs Temp Pulse Pulse Resp BP BP BP 08/04/19 08:30 63 29 H 08/04/19 08:00 62 12 08/04/19 07:30 36.8 C 66 19 08/04/19 07:18 70 18 91/69 L 08/04/19 07:00 71 20 08/04/19 04:00 36.8 C 66 12 98/45 L 08/04/19 00:00 36.8 C 61 15 108/68 08/03/19 20:00 37.1 C 74 20 94/63 L 08/03/19 18:22 36.8 C 16 102/68 08/03/19 17:40 68 16 08/03/19 17:30 68 13 104/68 08/03/19 17:20 75 13 08/03/19 17:10 75 12 08/03/19 17:01 78 13 127/62 08/03/19 17:00 83 12 08/03/19 16:50 77 17 08/03/19 16:40 73 12 08/03/19 16:30 72 12 121/73 08/03/19 16:20 70 16 08/03/19 16:10 76 20 08/03/19 16:00 70 13 112/67 08/03/19 15:50 69 17 08/03/19 15:40 82 16 08/03/19 15:34 95 H 17 08/03/19 15:00 75 13 124/81 08/03/19 14:50 73 12 08/03/19 14:40 72 17 08/03/19 14:31 84 17 136/92 08/03/19 14:30 91 H 15 08/03/19 14:20 71 16 08/03/19 14:10 71 14 08/03/19 14:00 85 17 108/79 08/03/19 13:50 77 13 08/03/19 13:40 68 15 08/03/19 13:30 81 18 109/76 08/03/19 13:20 73 16 08/03/19 13:10 71 19 08/03/19 13:00 67 15 129/89 08/03/19 12:30 74 24 115/79 08/03/19 12:29 67 20 08/03/19 12:20 72 15 123/77 08/03/19 12:07 36.8 C 87 20 120/82 Pulse Ox 08/04/19 08:30 08/04/19 08:00 08/04/19 07:30 100 08/04/19 07:18 08/04/19 07:00 08/04/19 04:00 100 08/04/19 00:00 99 08/03/19 20:00 99 08/03/19 18:22 98 08/03/19 17:40 08/03/19 17:30 100 08/03/19 17:20 08/03/19 17:10 08/03/19 17:01 100 08/03/19 17:00 08/03/19 16:50 08/03/19 16:40 08/03/19 16:30 08/03/19 16:20 100 08/03/19 16:10 98 08/03/19 16:00 100 08/03/19 15:50 100 08/03/19 15:40 08/03/19 15:34 08/03/19 15:00 98 08/03/19 14:50 98 08/03/19 14:40 99 08/03/19 14:31 100 08/03/19 14:30 99 08/03/19 14:20 100 08/03/19 14:10 99 08/03/19 14:00 99 08/03/19 13:50 100 08/03/19 13:40 99 08/03/19 13:30 100 08/03/19 13:20 100 08/03/19 13:10 100 08/03/19 13:00 100 08/03/19 12:30 99 08/03/19 12:29 100 08/03/19 12:20 99 08/03/19 12:07 99 Recovery Score Activity: Moves 4 extremities Respiration: Deep Breath/Cough Circulation: +/-20% PreAnes Value Consciousness: Fully Awake Oxygen Saturation: > 92% On Room Air Discharge Sedation Level of Care: Fast Track Phase II Post Sedation Plan On clinical assessment, the patient appears to have tolerated the sedation without complications. Patient is recovering as anticipated. Patient will continue to be monitored by nursing and may be discharged when sedation discharge criteria are met per below protocol. Upon Completions of procedure up to 15 minutes continue every 5 minute vital signs and the P.A.R. score; then discharge to a Phase I or Fast Track to Phase II per the following guidelines: * Discharge Patient to appropriate Phase II area if PAR is 8 or greater or return to pre- procedure baseline. The post - procedure orders will be as directed. * If PAR score is less than 8 or not return to pre-procedure baseline then patient will follow Phase I monitoring till PAR is reached for Phase II. The Phase I may be done in procedure room or may call to secure a Phase I area. * If naloxone or flumazenil are used for reversal, hold in Phase I for continued monitoring from when last reversal dose was given for a minimum of 60 minutes or longer pending the nurse and/or physician discretion of patient condition before discharge to Phase II. Please call the Sedation Physician to re-evaluate and complete post-note for discharge to Phase II area. Do NOT discharge from procedure sedation or Phase 1 until post- sedation evaluation note is complete by procedure /sedation MD Sedation Discharge Instructions to be given to the patient at discharge to home.
--- NOTE | 2019-08-04 10:43 | Cardiac Catheterization ---
Cardiac Cath Procedure Brief Procedure Date August 04, 2019 Pre-Procedure Diagnosis Pre-Procedure Diagnosis: Angina AUC Score AUC Score: 8 Post-Procedure Diagnosis Post-Procedure Diagnosis: Normal Coronary Arteries and Normal LV Systolic Function Procedure(s) Performed Procedure(s) Performed: Coronary Angiography, Left Heart Cath and LV Angiography Punch Out Crew Member Nicholas Andrade MD Trade Manager(s) Mani Massey Estimated Blood Loss Estimated Blood Loss: <15cc Medication(s) Medication(s): Fentanyl (12.5 mcg IV), Heparin (2000 units IV), Lidocaine 1% (Local infiltration access site), Nicardipine (250 mcg intra-arterial after arterial sheath insertion) and Versed (1 mg IV) Preliminary Findings Normal right dominant coronary anatomy Normal systolic function EF 60% Coronary angiography: Left main: Normal length and caliber and free of disease Left anterior descending: Type II in distribution. Gives rise to a large septal branch and a small diagonal branch in its proximal third 2 small diagonal branches in its midportion and courses to terminate at the apex there is no disease in the left anterior descending Left circumflex: Large but nondominant distribution. It gives rise to a large bifurcating high marginal branch of moderate bifurcating obtuse marginal and a single posterior lateral branch there is no disease in left circumflex Right coronary artery: Dominant but modest in caliber. It gives rise to a sinoatrial in a conus branch at its origin, two small right ventricular branches in its midportion, and at the AV groove a small bifurcating posterior descending artery and along the AV groove a single small posterior ventricular branch. It does give rise to the AV mini artery. There is no disease in the right coronary artery LV angiography: Vertically oriented heart with normal systolic function and wall motion EF 60%, no mitral insufficiency Recommendations Recommendations: Medical Therapy and/or Counseling Specimens Specimens: None Fluids (cc crystalloids) Fluids (cc crystalloids): 71 Procedural Complication(s) None Disposition PCU
[2019-08-04] MEDS ORDERED: SODIUM CHLORIDE 0.9% 1000ML 1,000 ML IV SCH (10:45)
--- NOTE | 2019-08-04 10:46 | Cardiac Catheterization ---
Cardiac Cath Procedure Full Procedure Date August 04, 2019 Pre-Procedure Diagnosis Pre-Procedure Diagnosis: Angina AUC Score AUC Score: 8 Post-Procedure Diagnosis Post-Procedure Diagnosis: Normal Coronary Arteries and Normal LV Systolic Function Procedure(s) Performed Procedure(s) Performed: Coronary Angiography, Left Heart Cath and LV Angiography Facility Engineer Nicholas Andrade MD Director Volunteer Services(s) Mani Massey Estimated Blood Loss Estimated Blood Loss: <15cc Medication(s) Medication(s): Fentanyl (12.5 mcg IV), Heparin (2000 units IV), Lidocaine 1% (Local infiltration access site), Nicardipine (250 mcg intra-arterial after arterial sheath insertion) and Versed (1 mg IV) Summary of Findings Normal right dominant coronary anatomy Normal systolic function EF 60% Coronary angiography: Left main: Normal length and caliber and free of disease Left anterior descending: Type II in distribution. Gives rise to a large septal branch and a small diagonal branch in its proximal third 2 small diagonal branches in its midportion and courses to terminate at the apex there is no disease in the left anterior descending Left circumflex: Large but nondominant distribution. It gives rise to a large bifurcating high marginal branch of moderate bifurcating obtuse marginal and a single posterior lateral branch there is no disease in left circumflex Right coronary artery: Dominant but modest in caliber. It gives rise to a sinoatrial in a conus branch at its origin, two small right ventricular branches in its midportion, and at the AV groove a small bifurcating posterior descending artery and along the AV groove a single small posterior ventricular branch. It does give rise to the AV mini artery. There is no disease in the right coronary artery LV angiography: Vertically oriented heart with normal systolic function and wall motion EF 60%, no mitral insufficiency Hemodynamics Rest Ao:: 140/76/102 Final Ao: 140/85/110 LV: 153/2/14 Recommendations Recommendations: Medical Therapy and/or Counseling Specimens Specimens: None Radiation Exposure (mGy) 146 Contrast (mls) 95 Fluids (cc crystalloids) Fluids (cc crystalloids): 71 Procedural Complication(s) None Disposition PCU I attest to the content of the Intraoperative Record and any orders documented therein. Any exceptions are noted below. 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 Symptoms relieved by sublingual CAD Presenation: Unstable angina Anginal Classification: CCS III Heart Failure: No Cardiogenic Shock within 24 Hours: No Cardiac Arrest within 24 Hours: No Imaging Studies Past 6 Months: Yes Stress Studies Past 6 Months: No Standard Exercise Test: No Stress Echocardiogram: No Stress Testing w/SPECT MPI: No Cardiac CTA: No Coronary Anatomy Dominant: Right Left Main (% Stenosis): Normal LAD (% Stenosis): Normal D1 (% Stenosis): Normal D2 (% Stenosis): Normal D3 (% Stenosis): Normal Circumflex (% Stenosis): Normal OM1 (% Stenosis): Normal OM2 (% Stenosis): Normal L PL1 (% Stenosis): Normal RCA (% Stenosis): Normal R PDA (% Stenosis): Normal R PL1 (% Stenosis): Normal Left Ventricular Angiography EF (%): 60 Mitral Regurgitation: None Diagnostic Physicians Name: Nicholas Andrade MD Status: Urgent Closure Device Percutaneous Entry Location: Radial Closure Device: Radial Band Recommendations: Medical Therapy and/or Counseling
--- NOTE | 2019-08-04 11:13 | Hospitalist Progress Note ---
Date of Service August 04, 2019 Assessment & Plan (1) Chest pain: Patient with chest pain with radiation into the back & jaw and strong family history of premature CAD. Symptoms are intermittent despite exertion or rest. Improved with nitro and Fentanyl. Serial troponins have been negative EKG did show anterior T wave changes Nitro PRN. ASA given in the ED. Continue 81 mg ASA daily. Denies any more pain this morning Cardiology consulted. Discussed patient with Dr. Andrade who agreed to see the patient in the ED. --> Plan for Echo and probable coronary angiography in the AM. Starting low dose beta mingo. Given significant family history and significant symptoms she will go for cardiac cath this morning (2) Abnormal ECG: (3) Family history of early CAD: (4) High cholesterol: Atorvastatin started today. Continue daily. Repeat Lipids in AM. (5) DVT prophylaxis: Heparin as above Admission and Anticipated Discharge Date Admission Date: August 03, 2019 Subjective The patient was seen and examined in ICU She has been complaining of chest pain suggestive of angina for the last few days She has a strong family history of ischemic heart disease Denies any more pain this morning Review of Systems Review of Systems: All systems reviewed and are unremarkable except as noted below Cardiovascular: + chest pain with activity; no chest pain and no palpitations Gastrointestinal: no abdominal pain Physical Exam Physical Exam: Lying in bed comfortably Constitutional: well developed and well nourished; no acute distress and not ill appearing Eyes: PERRL, conjunctivae normal, anicteric sclerae ENMT: external ear and nose normal, oropharynx normal Neck: trachea midline, no thyromegaly Respiratory: normal respiratory effort; no respiratory distress Auscultation: lungs clear to auscultation bilaterally Cardiovascular: Rate/Rhythm: regular rate and regular rhythm Heart Sounds: no murmur Gastrointestinal (Abdomen): Inspection/Auscultation: abdomen normal to inspection and normal bowel sounds; abdomen not distended Percussion/Palpation: abdomen soft; abdomen nontender Musculoskeletal: No acute arthritis involving any joints and no tenderness over precordium Neurologic: moves all extremities; no focal motor deficits Lymphatic: no cervical or axillary lymphadenopathy Results & Data Results & Data ([facility]) Vital Signs (Past 12 Hours) Vital Signs Temp Pulse Pulse Resp BP BP Pulse Ox 08/04/19 10:56 71 16 114/79 100 08/04/19 10:41 71 16 111/75 100 08/04/19 08:30 63 29 H 08/04/19 08:00 62 12 08/04/19 07:30 36.8 C 66 19 100 08/04/19 07:18 70 18 91/69 L 08/04/19 07:00 71 20 08/04/19 04:00 36.8 C 66 12 98/45 L 100 08/04/19 00:00 36.8 C 61 15 108/68 99 Laboratory Results Short CBC 08/03/19 08/04/19 Range/Units 12:28 04:16 WBC 8.70 7.40 (4.8-10.8) K/uL Hgb 14.4 13.0 (12.0-16.0) g/dL Hct 42.7 38.7 (37-47) % Plt Count 226 172 (130-400) K/uL BMP 08/03/19 08/04/19 12:28 04:16 Sodium 138 139 Potassium 4.0 3.9 Chloride 107 108 H Carbon Dioxide 22 27 BUN 19 H 20 H Creatinine 0.90 0.98 Glucose 87 85 Calcium 9.5 8.2 L Cardiac Enzymes 08/03/19 08/03/19 08/04/19 Range/Units 12:28 18:45 00:18 Troponin I < 0.015 < 0.015 < 0.015 (0-0.045) ng/ml Liver Function 08/03/19 08/04/19 Range/Units 12:28 04:16 Total Bilirubin 0.7 0.4 (0.2-1) mg/dl AST 17 12 L (15-37) U/L ALT 20 17 (12-78) U/L Alkaline Phosphatase 75 63 (45-117) U/L Albumin 4.0 3.3 L (3.4-5.0) gm/dl Medications Administered Current Inpatient Medications Acetaminophen (Tylenol) 650 mg PO Q4H PRN PRN Reason: Pain or Fever Stop: 09/02/19 18:21 Last Admin: 08/03/19 22:36 Dose: 650 mg Documented by: Aspirin (Ecotrin Ectab) 81 mg PO PM [facility] Stop: 09/02/19 20:59 Last Admin: 08/03/19 20:01 Dose: 81 mg Documented by: Atorvastatin Calcium (Lipitor) 40 mg PO QAM [facility] Stop: 09/02/19 15:14 Last Admin: 08/03/19 16:45 Dose: 40 mg Documented by: Ferrous Sulfate (Feosol) 325 mg PO PM [facility] Stop: 09/02/19 20:59 Last Admin: 08/03/19 20:00 Dose: 325 mg Documented by: Sodium Chloride (Nss 1000ml) 1,000 mls @ 125 mls/hr IV .Q8H ANNIKA Stop: 08/04/19 13:45 Melatonin (Melatonin) 3 mg PO HS PRN PRN Reason: Sleep Stop: 09/02/19 18:21 Nitroglycerin (Nitrostat) 0.4 mg SL UD PRN PRN Reason: Chest Pain Stop: 09/02/19 18:21 Ondansetron HCl (Zofran) 4 mg IV Q6H PRN PRN Reason: Nausea Stop: 09/02/19 18:21 (1) Chest pain Chest pain type: unspecified Qualified Code(s): R07.9 - Chest pain, unspecified
[2019-08-04] MEDS: ATORVASTATIN 40 MG TAB PO SCH (13:49)
--- NOTE | 2019-08-04 14:12 | Cardiology Progress Note ---
Date of Service August 04, 2019 Assessment & Plan (1) Chest pain: Patient is a relatively young 49-year-old female with recent onset of heavy severe chest pressure pain concerning for angina in a patient with cardiac risk factors of hyperlipidemia and family history. EKG today does demonstrate new ST segment abnormalities with initial negative troponin, d-dimer Chest x-ray normal Plan: Due to risk factors patient underwent diagnostic cardiac catheterization today without obstructive coronary disease found/normal coronaries and LV function Symptoms noncardiac in etiology Agree with treating lipids Source of discomfort uncertain possible esophageal spasm versus Greg Given history of iron deficiency anemia in the last years time and current complaints may consider GI evaluation versus empiric treatment esophageal irritation, reflux (2) Abnormal ECG: (3) Family history of early CAD: (4) High cholesterol: Subjective Patient seen and examined, chart medications telemetry reviewed. Patient underwent diagnostic cardiac catheterization this morning without obstructive coronary disease normal systolic heart function No further chest pain or discomfort Physical Exam Constitutional: WD/WN, vitals as above Eyes: PERRL, conjunctivae normal, anicteric sclerae ENMT: external ear and nose normal, oropharynx normal Neck: trachea midline, no thyromegaly Respiratory: normal respiratory effort, lungs clear to auscultation Cardiovascular: RRR, no murmur, no edema Rate/Rhythm: regular rate and regular rhythm Heart Sounds: normal S1, normal S2 and + murmur (Less than grade 1/6 systolic murmur at right upper sternal border); no gallop and no cardiac rub Palpation: normal PMI Vessels: normal peripheral pulses, normal carotid upstroke and radial pulses present; no JVD, no carotid bruit and no femoral bruit Extremities: no edema Gastrointestinal (Abdomen): normal bowel sounds, soft, nontender, no hepatosplenomegaly Musculoskeletal: no cyanosis or clubbing, extremities motor strength 5/5 Skin: no rashes, warm and dry Neurologic: PERRL, EOMI, accommodation nl, no face palsy, no dysarthria Psychiatric: A+Ox3, euthymic affect Results & Data Vital Signs (Past 12 Hours) Vital Signs Temp Pulse Pulse Resp BP BP Pulse Ox 08/04/19 14:00 66 16 102/67 100 08/04/19 13:30 64 16 105/71 99 08/04/19 13:00 65 16 95/55 L 98 06/12/20 12:30 64 67 18 99/71 L 99/71 L 99 08/04/19 12:15 71 20 103/69 99 08/04/19 12:00 71 75 16 112/79 112/79 100 08/04/19 11:45 77 65 20 97/75 L 97/75 L 100 08/04/19 11:30 59 L 63 15 108/66 108/66 100 08/04/19 11:15 59 L 60 20 101/70 101/70 99 08/04/19 11:02 77 25 H 95 08/04/19 11:00 70 61 26 H 102/66 102/66 99 08/04/19 10:59 74 18 115/76 08/04/19 10:56 71 16 114/79 100 08/04/19 10:41 71 16 111/75 100 08/04/19 09:00 59 L 15 08/04/19 08:45 72 16 08/04/19 08:30 63 29 H 08/04/19 08:00 62 12 08/04/19 07:30 36.8 C 66 19 100 08/04/19 07:18 70 18 91/69 L 08/04/19 07:00 71 20 08/04/19 04:00 36.8 C 66 12 98/45 L 100 Laboratory Results Laboratory Results - last 24 hr 08/03/19 08/03/19 08/04/19 12:28 18:45 00:18 WBC RBC Hgb Hct MCV MCH MCHC RDW Std Deviation RDW Coeff of Samantha Plt Count MPV ESR 48 H APTT PTT Ratio Sodium Potassium Chloride Carbon Dioxide Anion Gap BUN Creatinine Est Cr Clr Drug Dosing Est GFR ( Amer) Est GFR (Non-Af Amer) BUN/Creatinine Ratio Glucose Estimat Average Glucose Hemoglobin A1c Calcium Total Bilirubin AST ALT Alkaline Phosphatase Troponin I < 0.015 < 0.015 Total Protein Albumin Globulin Albumin/Globulin Ratio Triglycerides Cholesterol LDL Cholesterol, Calc VLDL Cholesterol, Calc HDL Cholesterol Cholesterol/HDL Ratio POC Ur Test 08/04/19 08/04/19 08/04/19 00:18 04:16 04:16 WBC 7.40 RBC 4.11 L Hgb 13.0 Hct 38.7 MCV 94.2 MCH 31.6 MCHC 33.6 RDW Std Deviation 41.9 RDW Coeff of Samantha 12.3 Plt Count 172 MPV 12.5 H ESR APTT 50.9 H* PTT Ratio 1.8 Sodium 139 Potassium 3.9 Chloride 108 H Carbon Dioxide 27 Anion Gap 4.0 BUN 20 H Creatinine 0.98 Est Cr Clr Drug Dosing 63.4 Est GFR ( Amer) 79.6 Est GFR (Non-Af Amer) 68.7 BUN/Creatinine Ratio 20.7 H Glucose 85 Estimat Average Glucose Hemoglobin A1c Calcium 8.2 L Total Bilirubin 0.4 AST 12 L ALT 17 Alkaline Phosphatase 63 Troponin I Total Protein 6.9 Albumin 3.3 L Globulin 3.6 Albumin/Globulin Ratio 0.9 Triglycerides 156 H Cholesterol 249 H LDL Cholesterol, Calc 168 VLDL Cholesterol, Calc 31 HDL Cholesterol 50 Cholesterol/HDL Ratio 5 POC Ur Test 08/04/19 08/04/19 08/04/19 04:16 04:16 11:40 WBC RBC Hgb Hct MCV MCH MCHC RDW Std Deviation RDW Coeff of Samantha Plt Count MPV ESR APTT 49.0 H* PTT Ratio 1.8 Sodium Potassium Chloride Carbon Dioxide Anion Gap BUN Creatinine Est Cr Clr Drug Dosing Est GFR ( Amer) Est GFR (Non-Af Amer) BUN/Creatinine Ratio Glucose Estimat Average Glucose 91 Hemoglobin A1c 4.8 Calcium Total Bilirubin AST ALT Alkaline Phosphatase Troponin I Total Protein Albumin Globulin Albumin/Globulin Ratio Triglycerides Cholesterol LDL Cholesterol, Calc VLDL Cholesterol, Calc HDL Cholesterol Cholesterol/HDL Ratio POC Ur Test NEG (1) Chest pain Chest pain type: unspecified Qualified Code(s): R07.9 - Chest pain, unspecified
[2019-08-04] MEDS: ACETAMINOPHEN 325 MG TAB PO PRN (15:10)
[2019-08-04] MEDS: METOPROLOL TARTRATE 25 MG TAB PO SCH (15:38)
--- NOTE | 2019-08-04 23:39 | Electrocardiogram Report ---
Test Reason : Blood Pressure : / mmHG Vent. Rate : 067 BPM Atrial Rate : 067 BPM P-R Int : 118 ms QRS Dur : 090 ms QT Int : 414 ms P-R-T Axes : 069 044 021 degrees QTc Int : 437 ms Normal sinus rhythm with sinus arrhythmia Nonspecific T wave abnormality Abnormal ECG When compared with ECG of 03-AUG-2019 14:21, T wave inversion less evident in Anterior leads Confirmed by Elias Otero ([id number]) on 08/04/2019 11:39:24 PM Referred By: REFERRED SELF Confirmed By:Elias Otero
--- NOTE | 2019-08-05 07:37 | Discharge Summary ---
Date of Service August 05, 2019 Admission HPI Per Admitting Provider Patient is a 49 yo female with history of iron deficiency anemia and dyslipidemia with a strong family history of premature CAD who presented to the ED today with chest pain. She started to have chest pain last week following dinner and a glass of wine. At that time, the pain was a "crushing" pain/sensation in her chest and radiating into her back. She also noted some SOB at that time. She was seen at her PCP's office and had an EKG which showed no acute changes at that time. Her symptoms were on and off and not associated with exertion/exercise. She was tested for COVID which was negative. She was ultimately scheduled for labs and cardiac evaluation, but she has not had that yet. She started to have episodic pain over the past couple of days, and last night, her pain became persistent to the point that she didn't sleep well. She describes a pressure/burning pain over the left/sternal area that radiates into the back. She did have some radiation into her left jaw and neck overnight as well. The pain is on and off whether she is active or at rest. She does have associated SOB and mild pain with deep breath. She also has been feeling "jittery" for the past 12 hours or so. She started daily ASA 81 mg over the past couple days because of concerns over symptoms. She otherwise denies dysphagia, GERD symptoms, anxiety, N/V/D/C, abdominal pain, or peripheral edema. She has a strong family history of CAD. Her mother and father both have CAD. Her father had an NE at 42 & a stroke at 60 yo. Her paternal grandfather also had NE x 3 (youngest in his 40s). The patient's last LDL as an outpatient was 169 on 08/22/18. She does also have history of iron deficiency anemia that has been well controlled with iron supplementation. Since presentation: First troponin negative. DDimer negative. Initial EKG in the ED showed T wave inversions in the anterior & inferior leads. She was given Nitro Paste and Fentanyl which improved her pain. She is currently resting comfortably in the ED. She does describe some "jittery" feeling that has continued with these medications. Vitals stable. CXR showed no acute process. Admission Exam Per Admitting Provider General: Well nourished, well hydrated, average body habitus, no acute distress and not ill appearing Eyes: PERRL, conjunctivae normal, not pale, anicteric sclerae, EOM intact bilaterally ENMT: External ear and nose normal, oropharynx normal Neck: Normal visual inspection, no tracheal deviation, no swelling noted Respiratory: Normal respiratory effort, no respiratory distress, lungs clear to auscultation, no crackles and no wheezes Cardiovascular: Pulse is RRR. S1-2, no murmurs, normal peripheral pulses, no pedal edema Chest (Breasts): Chest: normal inspection of chest, no tenderness to palpation Gastrointestinal (Abdomen): Abdomen is not distended, soft, non-tender to palpation, no guarding, no palpable hepatosplenomegaly, normal bowel sounds Musculoskeletal: No cyanosis or clubbing, all extremities motor strength 5/5 Neurologic: Alert and oriented x 3, No focal weakness, sensation grossly intact Psychiatric: Euthymic affect, no depressed affect Principal Diagnosis Chest pain, no ACS and normal cardiac cath. Discharge Exam Constitutional well developed and well nourished; no acute distress and not ill appearing Eyes PERRL, conjunctivae normal, anicteric sclerae ENMT external ear and nose normal, oropharynx normal Neck trachea midline, no thyromegaly Respiratory normal respiratory effort; no respiratory distress Auscultation: lungs clear to auscultation bilaterally Cardiovascular Rate/Rhythm: regular rate and regular rhythm Heart Sounds: no murmur Gastrointestinal (Abdomen) Inspection/Auscultation: abdomen normal to inspection and normal bowel sounds; abdomen not distended Percussion/Palpation: abdomen soft; abdomen nontender Neurologic moves all extremities; no focal motor deficits Lymphatic no cervical or axillary lymphadenopathy Discharge Data Allergies Allergy/AdvReac Type Severity Reaction Status Date / Time No Known Allergies Allergy Unverified 08/03/19 12:51 Consultations 08/03/19 14:04 ED Decision to Admit Stat 08/03/19 15:04 Consult Cardiology Stat 08/03/19 18:22 Consult Case Management - Discharge Planning Routine Procedures Performed Operation Date: 08/04/19 09:30 Actual Procedures p Cath, Left with Cors and Vent - Nicholas Andrade MD s Cineradiography w/Routine Exam - Nicholas Andrade MD Ordered Studies 08/04/19 09:21 CL Cath Imgs for PACS use only Stat Hospital Course (1) Chest pain: Patient with chest pain with radiation into the back & jaw and strong family history of premature CAD. Symptoms are intermittent despite exertion or rest. Improved with nitro and Fentanyl. Serial troponins have been negative EKG did show anterior T wave changes Nitro PRN. ASA given in the ED. Continue 81 mg ASA daily. Denies any more pain this morning Cardiology consulted. Discussed patient with Dr. Andrade who agreed to see the patient in the ED. --> Plan for Echo and probable coronary angiography in the AM. Starting low dose beta mingo. Given significant family history and significant symptoms she will go for cardiac cath this morning (2) Abnormal ECG: (3) Family history of early CAD: Patient with chest pain with radiation into the back & jaw and strong family history of premature CAD. Symptoms are intermittent despite exertion or rest. Improved with nitro and Fentanyl. Possible NSTEMI with unstable angina. Repeat EKG showed continued T wave inversions. Trend troponin. Cardiology consulted. Discussed patient with Dr. Andrade who agreed to see the patient in the ED. --> Plan for Echo and probable coronary angiography in the AM. Starting low dose beta mingo. NPO after midnight. Heparin drip started. Admit to PCU. EKG PRN chest pain. Nitro PRN. ASA given in the ED. Continue 81 mg ASA daily. (4) High cholesterol: Atorvastatin started today. Continue daily. Repeat Lipids in AM. (5) DVT prophylaxis: Heparin as above Total Time Total Time Spent Total Time Spent (In Minutes): 35 MINUTES Total Time Includes: Examination of the Patient, Discharge Planning, Medication Reconciliation and Communication With Other Providers Discharge Plan Discharge Items Patient Disposition: Home - Self-Care Reason For Visit: CHEST PAIN Discharge Diagnosis: Chest pain, no ACS and normal cardiac cath. Condition on Discharge: Good Activity: As commented below Non-emergency contact: Primary Care Provider Call non-emergency contact if: you have any medication questions Follow-up/Referrals: Elvia Lee MD [Primary Care Provider] - 08/09/19 11:00 am (08/09/2019 11:00 AM Provider Elvia Arevalo MD Department General Internal Medicine [facility] ) Diet: Heart Healthy Addtl Attending Provider Instructions: ACTIVITY RECOMMENDATIONS: Excess manipulation of the wrist should be avoided for the next 24-48 hours. * No lifting over 2 pounds (approximately a 1/2 gallon of milk) with the utilized arm for 24 hours. * No strenuous activity such as bowling or tennis for 3 days. * Keep the site of the procedure covered with a bandage for 24 hours. *You may shower the day after the procedure. Do not take a tub bath or submerge the puncture site in water for the next 3 days. *Do not operate any motorized equipment for 3 days. SPECIAL CARE INSTRUCTIONS: The site may be slightly bruised and sore following your procedure. Should any of the following occur, contact the Dr. who performed your procedure. 1. Redness/inflammation, swelling, chills, or fever, or colored drainage at procedure site within 3-7 days after your procedure. 2. Coldness, discoloration, ongoing numbness, severe pain, or swelling. Expect mild tingling of hand and tenderness at the puncture site for up to three days. If this persists beyond three days, or other symptoms develop, notify the Dr. who performed your procedure. BLEEDING: If the procedure site on your wrist begins to bleed, do not panic 1. Place 1 or 2 fingers firmly just slightly above the insertion site to stop the bleeding. You may be able to feel your pulse as you hold pressure. 2. Lift your finger after 5 minutes to see if the bleeding has stopped. 3. Once the bleeding has stopped, gently wipe the wrist area clean with a bandage. * If the bleeding from your wrist does not stop after 10 minutes, or if there is a large amount of bleeding or spurting, call 911 (do not drive yourself to the hospital). SKIN IRRITATION: * You may experience some redness and/or swelling in the area where radiation was administered. If any skin irritation occurs, please contact your family physician. FOLLOW UP VISIT: Keep any scheduled doctor appointments. Pending Studies at Discharge: No Stand-Alone Forms: My [employer], Smoking Cessation Medications and DC Order Prescriptions: New atorvastatin 40 mg Tablet 40 mg PO QAM 30 Days Qty: 30 RF: 0 Continued multivitamin Tablet 1 tab PO QAM RF: 0 melatonin 3 mg Tablet 3 mg PO HS PRN (Reason: Sleep) RF: 0 calcium carbonate [Calcium 600] 600 mg calcium (1,500 mg) Tablet 0 mg PO PM RF: 0 ferrous sulfate [iron] 325 mg (65 mg iron) Tablet 325 mg PO PM RF: 0 cholecalciferol (vitamin D3) [Vitamin D3] 125 mcg (5,000 unit) Tablet 125 mcg PO QAM RF: 0 omega [id number] oil [Fish Oil] 1,000 mg (120 mg-180 mg) Capsule 1 cap PO QAM RF: 0 coenzyme Q10 [Co Q-10] 100 mg Capsule 100 mg PO QAM RF: 0 Discontinued aspirin 81 mg Tablet,Delayed Release (Dr/Ec) 81 mg PO PM RF: 0 Discharge Orders: Discharge Order (Routine); Ordered 08/04/19 Ordered By: Bria Hope/Other Patient Handouts: Cholesterol Control Admission Data Admit Date/Time: 08/03/19 15:04 Attending Provider: Bria Sanders Admit Provider: Genoveva Guzman I. Primary Care Provider: Elvia Lee Other Providers: Nicholas Andrade Valentine I. Other Interventions: Discharge Summary Assessment (RN) Last Done: 08/04/19 17:31 DC Date/Time DO NOT enter until pt leaves facility: 08/04/19 18:19
== END 2019-08-04 18:19 | disposition home or self-care (01) ==
LOC: 1E 12:02 → ED 12:02 → SUATTDRO 15:04 → 1E 17:07